=== PATIENT | male | born 1970 | race Two or more races ===

== ENCOUNTER 2019-12-28 02:31 | Emergency (ER) | payer MEDICAID ==
[~2019-12-28] VITALS: Ht 167.6 cm; Wt 63.6 kg
[2019-12-28] MEDS ORDERED: METF-960 PO (02:37)
[2019-12-28 05:06] VITALS: BP 126/83
== END 2019-12-28 06:06 | disposition home or self-care (01) ==
LOC: EMS 02:32
DX: S00.03XA Contusion of scalp, initial encounter (principal); E11.9 Type 2 diabetes mellitus without complications; Z79.84 Long term (current) use of oral hypoglycemic drugs; W19.XXXA Unspecified fall, initial encounter; Y93.89 Activity, other specified; Y92.89 Other specified places as the place of occurrence of the external cause; Y99.8 Other external cause status
CPT/HCPCS: 70450; 72125